=== PATIENT | male | born 1970 | race Caucasian/White ===

== ENCOUNTER → 2017-01-18 | Outpatient (CLI) | payer OTHER ==
[~2017-01-18] MED LIST: ANTIBIOTIC O500 U/GM T; ATORVASTATIN CA10 M1 PO; CITALOPRAM HYDR40 MG PO; FENOFIBRATE160 MG PO; KEFLEX500 M1 PO; METFORMIN HCL1000 MG PO; NAPROSYN500 MG PO; SILDENAFIL20 M1 PO
== END | disposition home or self-care (01) ==
LOC: RAD 17:18
DX: M51.36 Other intervertebral disc degeneration, lumbar region (principal); M48.05 Spinal stenosis, thoracolumbar region; M48.02 Spinal stenosis, cervical region; M50.322 Other cervical disc degeneration at C5-C6 level; M25.511 Pain in right shoulder; M25.512 Pain in left shoulder

== ENCOUNTER 2017-04-16 08:58 | Inpatient (IN) | payer OTHER ==
[~2017-04-16] VITALS: Ht 185 cm; Wt 147.0 kg
--- NOTE | ~2017-04-16 | CON ---
[place], [place] REPORT OF CONSULTATION NAME: SHANNON BOND UNIT #: [id number] ROOM: 408 DOCTOR: KASSIDY LAUREN,DECEMBER BIRTHDATE: [birth year] DOS: 04/17/2017 HISTORY OF PRESENT ILLNESS: The patient is a 46-year-old obese male who was admitted with approximately 6 days history of worsening buttock pain as well as poor appetite, fevers and chills over the last couple of days. He was found to have a buttock abscess. He was I and D by Dr. Lopez. ID was consulted for buttock abscess, cultures are both growing group B strep. I and D occurred yesterday on the . Blood cultures are negative. The patient's temperatures were down and he is feeling somewhat better, though he continues with significant pain. WBCs were 12.3 on admission, down to 10.7 today. PAST MEDICAL HISTORY: As above as well as evulsion of skin of right thumb, heroin abuse, hyperlipidemia, hypertension, opiate abuse and tonsillectomy. SOCIAL HISTORY: Again, history of heroin and opiate abuse. He is a chronic smoker, nondrinker. ALLERGIES: No known drug allergies. REVIEW OF SYSTEMS: As above in history of present illness, continues to have again significant pain in left buttocks. No cough or shortness of breath. No rash or itch. Fevers and chills have improved as has the nausea. He has been afebrile since admission. Further review of systems is unremarkable. He states he has had cyst in the past but never required medical treatment. CURRENT MEDICATIONS: Include Levemir, Celexa, [place], vancomycin, Lipitor, Zosyn, Neurontin, Restoril, Zofran. LABORATORY DATA: WBC 10.7, platelets 72, BUN 21, creatinine 1.5. LFTs within normal limits. Cultures as reviewed above. PHYSICAL EXAMINATION: VITAL SIGNS: Temperature 98.6, pulse 74, respirations 20, BP 129/55. GENERAL: A 46-year-old obese male in no acute distress. HEAD, EYES, EARS, NOSE, AND THROAT: Normocephalic, no thrush. LUNGS: Clear to auscultation bilaterally. Respirations even and unlabored. HEART: Regular rhythm. No murmur appreciated. ABDOMEN: Soft, obese, nontender. EXTREMITIES: No edema, deformity or cyanosis. Left gluteal cleft wound is packed, does have surrounding induration and tenderness. SKIN: Otherwise, warm, dry, free of rashes, several tattoos noted. ASSESSMENT: Left gluteal cleft abscess with cultures currently growing group B strep. We will go ahead and stop the vancomycin, especially given his creatinine of 1.5. Continue the Zosyn and anticipate narrowing the antibiotics to oral antibiotics and discharging in the next 24-48 hours. Case discussed with Dr. Hollis Gimenez. [place], [place] REPORT OF CONSULTATION NAME: SHANNON BOND UNIT #: [id number] ROOM: [facility] DOCTOR: KASSIDY LAURENDECEMBER BIRTHDATE: [birth year] KARLENE XIN YI HOLLIS GIMENEZ MD CM:CONSTR:REPORT OF CONSULTATION 1708 04/17/17 [id number]
--- NOTE | ~2017-04-16 | PROC NOTE ---
[place], [place] PROCEDURE NOTE [facility]: [facility]OND [id number] UNIT #: [id number] ROOM: 408 DOCTOR: AMAIRANI LOPEZ MD BIRTHDATE: [birth year] DOS: 04/21/2017 PREOPERATIVE DIAGNOSIS: Left buttock abscess. POSTOPERATIVE DIAGNOSIS: Left buttock abscess. PROCEDURE: Incision and drainage of left buttock abscess. SURGEON: Amairani Lopez MD BANDER AND CELLOPHANER MACHINE HELPER: None. ANESTHESIA: MAC. INDICATIONS: This is a 46-year-old male with a history of persistent left buttock abscess who is here for the above-mentioned procedure. The procedure and its complications explained to the patient in detail and he agreed to proceed. DESCRIPTION OF PROCEDURE: After identifying the patient, the patient was brought to the operating suite and laid in the supine position. After IV sedation was administered, a timeout procedure was called and the patient was placed in lithotomy position and the parts were then painted and draped in the usual sterile fashion. The previously made incision for the left buttock abscess was deepened in layers and a small amount of fat necrosis and pus was drained. Saline was used for irrigation and abscess cavity was then packed with the help of 1 inch iodoform pack. Dressing was placed. The patient was brought back into the recovery room in a stable fashion. There were no complications. Dr. Amairani Lopez, the attending surgeon, was present throughout the operating case. Amairani Lopez MD CM:PROCNOTE:PROCEDURE NOTE [id number] AMAIRANI LOPEZ MD
[2017-04-16 09:05] VITALS: BP 154/98
[2017-04-16 09:41] LABS: BASO % 0.2 % (0.0-1.0); EOS # 0.1 10*3/uL (0.0-0.4); EOS % 0.8 % (1.0-4.0); HEMATOCRIT 37.2 % (42.0-52.0); HEMOGLOBIN 13.1 g/dl (14.0-18.0); IG # 0.1 10*3/uL (0.0-0.1); LYMPH # 1.2 10*3/uL (1.3-4.4); MEAN CELL VOLUME 90.1 fl (80.0-94.0); MEAN CORPUSCULAR HGB 31.7 pg (27.0-31.0); MEAN CORPUSCULAR HGB CONC 35.2 g/dl (33.0-37.0); MONO # 1.3 10*3/uL (0.1-1.0); MONO % 10.6 % (3.0-9.0); NEUT # 9.6 10*3/uL (2.3-7.9); NEUT % 77.8 % (47.0-73.0); PLATELET COUNT AUTOMATED 85 10*3/uL (130-400); RED BLOOD COUNT 4.13 10*6/uL (4.50-5.90); RED CELL DISTRI WIDTH 12.1 % (0-14.5); WHITE BLOOD COUNT 12.3 10*3/uL (4.8-10.8)
[2017-04-16 09:57] LABS: ALBUMIN 2.1 gm/dl (3.1-4.5); BILIRUBIN, TOTAL 0.7 mg/dl (0.2-1.0); POTASSIUM 4.2 mmol/L (3.5-5.1); TOTAL PROTEIN 6.9 gm/dL (6.4-8.2)
[2017-04-16 11:50] VITALS: BP 139/71
[2017-04-16] MEDS ORDERED: LISINOPRIL AND1 TA2 PO (12:17)
[2017-04-16] MEDS ORDERED: LANTUS SOLOS100 U/M1 SC (12:18)
[2017-04-16] MEDS ORDERED: GABAPENTIN TAB600 MG PO (12:18)
[2017-04-16] MEDS ORDERED: HUMALOG100 UNIT/1 SQ (12:18)
[2017-04-16] MEDS ORDERED: CITALOPRAM HYDR20 MG PO (12:19)
[2017-04-16] MEDS ORDERED: LISINOPRIL-HYDR1 TA2 PO (12:28)
[2017-04-16] MEDS ORDERED: ATORVASTATIN CA10 M1 PO (12:33)
[2017-04-16] MEDS ORDERED: METFORMIN1000 MG PO (12:34)
[2017-04-16] MEDS ORDERED: LANTUS100 U/ML SC (12:37)
[2017-04-16 16:00] VITALS: BP 130/82
[2017-04-16 18:41] LABS: CPK 87 U/L (39-308)
[2017-04-16 18:42] LABS: TROPONIN I < 0.015 ng/ml (<0.045)
[2017-04-16 20:00] VITALS: BP 136/63
[2017-04-17] VITALS: BP 119/51
[2017-04-17 06:43] LABS: BILIRUBIN NEGATIVE (NEGATIVE); BLOOD 2+ (NEGATIVE); CLARITY CLEAR (CLEAR); COLOR YELLOW (YELLOW); GLUCOSE 2+ (NEGATIVE); KETONE NEGATIVE (NEGATIVE); LEUKO ESTERASE TRACE (NEGATIVE); NITRITE NEGATIVE (NEGATIVE); PH 5.5 (5.0-9.0); PROTEIN 3+ (NEGATIVE); SPECIFIC GRAVITY 1.025 (1.005-1.030)
[2017-04-17 06:51] LABS: BACTERIA 1+
[2017-04-17 06:52] LABS: BASO % 0.2 % (0.0-1.0); EOS # 0.1 10*3/uL (0.0-0.4); HEMATOCRIT 34.7 % (42.0-52.0); HEMOGLOBIN 11.9 g/dl (14.0-18.0); IG # 0.1 10*3/uL (0.0-0.1); LYMPH % 9.4 % (27.0-41.0); MEAN CORPUSCULAR HGB 31.9 pg (27.0-31.0); MEAN CORPUSCULAR HGB CONC 34.3 g/dl (33.0-37.0); MEAN PLATELET VOLUME 11.6 fl (9.6-12.3); MONO # 1.3 10*3/uL (0.1-1.0); MONO % 12.3 % (3.0-9.0); NEUT # 8.2 10*3/uL (2.3-7.9); NEUT % 76.4 % (47.0-73.0); PLATELET COUNT AUTOMATED 72 10*3/uL (130-400); RED BLOOD COUNT 3.73 10*6/uL (4.50-5.90); WHITE BLOOD COUNT 10.7 10*3/uL (4.8-10.8)
[2017-04-17 07:06] LABS: HEMOGLOBIN A1c 13.3 % (4.8-5.6)
[2017-04-17 07:22] LABS: INTERNATIONAL NORM RATIO 1.1 (2.0-3.5); PROTHROMBIN TIME 11.4 SECONDS (9.0-12.4)
[2017-04-17 07:25] LABS: ALBUMIN 1.8 gm/dl (3.1-4.5); BUN 21 mg/dl (7-24); CARBON DIOXIDE 22 mmol/L (21-32); CHLORIDE 101 mmol/L (98-107); CHOLESTEROL 139 mg/dL (<200); EST GLOM FILT AFRICAN AMERICAN > 60 ml/min; GLUCOSE 221 mg/dL (65-99); MAGNESIUM 1.8 mg/dL (1.5-2.1); POTASSIUM 4.1 mmol/L (3.5-5.1); SGOT/AST 19 IU/L (3-35); SGPT/ALT 28 U/L (12-78); SODIUM 132 mmol/L (136-145)
[2017-04-17 07:33] LABS: ALKALINE PHOSPHATASE 63 U/L (45-117); BILIRUBIN, TOTAL 0.5 mg/dl (0.2-1.0); FREE T4 1.09 ng/dl (0.76-1.46); HDL CHOLESTEROL 32 mg/dl (40-60); LDL CHOLESTEROL 72 mg/dL (9-159); PHOSPHOROUS 2.3 mg/dL (2.5-4.9); TOTAL PROTEIN 5.8 gm/dL (6.4-8.2); TRIGLYCERIDES 173 mg/dl (<150); VLDL CHOLESTEROL 35 mg/dL (6-40)
[2017-04-17 07:39] LABS: VITAMIN D, 25-HYDROXY 14.6 ng/mL (30-100)
[2017-04-17 07:40] LABS: FOLIC ACID 12.56 ng/mL (>5.38)
[2017-04-17 08:00] VITALS: BP 123/52
[2017-04-17 12:00] VITALS: BP 132/60
[2017-04-17 16:00] VITALS: BP 129/55
[2017-04-17 20:00] VITALS: BP 146/74
[2017-04-18] VITALS: BP 145/60
[2017-04-18 08:00] VITALS: BP 137/60
[2017-04-18 12:00] VITALS: BP 134/73
[2017-04-18 16:00] VITALS: BP 133/72
[2017-04-18 20:00] VITALS: BP 157/67
[2017-04-19] VITALS: BP 131/62
[2017-04-19 06:21] LABS: BASO % 0.5 % (0.0-1.0); EOS # 0.2 10*3/uL (0.0-0.4); HEMATOCRIT 33.2 % (42.0-52.0); HEMOGLOBIN 11.1 g/dl (14.0-18.0); IG # 0.1 10*3/uL (0.0-0.1); LYMPH # 1.3 10*3/uL (1.3-4.4); LYMPH % 15.5 % (27.0-41.0); MEAN CORPUSCULAR HGB 31.1 pg (27.0-31.0); MEAN CORPUSCULAR HGB CONC 33.4 g/dl (33.0-37.0); MEAN PLATELET VOLUME 11.9 fl (9.6-12.3); MONO % 12.2 % (3.0-9.0); NEUT # 5.5 10*3/uL (2.3-7.9); NEUT % 68.7 % (47.0-73.0); PLATELET COUNT AUTOMATED 93 10*3/uL (130-400); RED BLOOD COUNT 3.57 10*6/uL (4.50-5.90); RED CELL DISTRI WIDTH 11.9 % (0-14.5)
[2017-04-19 06:52] LABS: BUN 16 mg/dl (7-24); CARBON DIOXIDE 25 mmol/L (21-32); CHLORIDE 104 mmol/L (98-107); EST GLOM FILT AFRICAN AMERICAN > 60 ml/min; GLUCOSE 260 mg/dL (65-99); POTASSIUM 4.5 mmol/L (3.5-5.1); SODIUM 137 mmol/L (136-145)
[2017-04-19 08:00] VITALS: BP 123/68
[2017-04-19 12:00] VITALS: BP 143/77
[2017-04-19 15:58] VITALS: BP 142/60
[2017-04-19 20:00] VITALS: BP 134/65
[2017-04-20] VITALS: BP 152/91
[2017-04-20 06:53] LABS: BASO % 0.6 % (0.0-1.0); EOS # 0.2 10*3/uL (0.0-0.4); EOS % 2.3 % (1.0-4.0); HEMATOCRIT 34.6 % (42.0-52.0); HEMOGLOBIN 11.5 g/dl (14.0-18.0); IG # 0.1 10*3/uL (0.0-0.1); LYMPH # 1.5 10*3/uL (1.3-4.4); LYMPH % 20.9 % (27.0-41.0); MEAN CELL VOLUME 92.8 fl (80.0-94.0); MEAN CORPUSCULAR HGB 30.8 pg (27.0-31.0); MEAN CORPUSCULAR HGB CONC 33.2 g/dl (33.0-37.0); MEAN PLATELET VOLUME 11.9 fl (9.6-12.3); MONO # 0.8 10*3/uL (0.1-1.0); MONO % 11.1 % (3.0-9.0); NEUT # 4.4 10*3/uL (2.3-7.9); NEUT % 63.4 % (47.0-73.0); PLATELET COUNT AUTOMATED 98 10*3/uL (130-400); RED BLOOD COUNT 3.73 10*6/uL (4.50-5.90); RED CELL DISTRI WIDTH 11.9 % (0-14.5); WHITE BLOOD COUNT 6.9 10*3/uL (4.8-10.8)
[2017-04-20 06:59] LABS: BUN 15 mg/dl (7-24); CARBON DIOXIDE 26 mmol/L (21-32); CHLORIDE 102 mmol/L (98-107); EST GLOM FILT AFRICAN AMERICAN > 60 ml/min; GLUCOSE 286 mg/dL (65-99); POTASSIUM 4.4 mmol/L (3.5-5.1); SODIUM 136 mmol/L (136-145)
[2017-04-20 08:00] VITALS: BP 151/74
[2017-04-20 12:00] VITALS: BP 132/63
[2017-04-20 16:00] VITALS: BP 137/58
[2017-04-20 20:00] VITALS: BP 135/60
[2017-04-21] VITALS (9 sets, daily range): BP systolic 114–181; BP diastolic 59–81
[2017-04-21 05:59] LABS: BASO % 0.5 % (0.0-1.0); EOS # 0.1 10*3/uL (0.0-0.4); EOS % 2.1 % (1.0-4.0); HEMATOCRIT 34.1 % (42.0-52.0); HEMOGLOBIN 11.3 g/dl (14.0-18.0); IG # 0.2 10*3/uL (0.0-0.1); LYMPH # 1.4 10*3/uL (1.3-4.4); LYMPH % 21.9 % (27.0-41.0); MEAN CELL VOLUME 92.4 fl (80.0-94.0); MEAN CORPUSCULAR HGB 30.6 pg (27.0-31.0); MEAN CORPUSCULAR HGB CONC 33.1 g/dl (33.0-37.0); MEAN PLATELET VOLUME 11.1 fl (9.6-12.3); MONO # 0.8 10*3/uL (0.1-1.0); MONO % 11.9 % (3.0-9.0); NEUT % 61.3 % (47.0-73.0); PLATELET COUNT AUTOMATED 95 10*3/uL (130-400); RED BLOOD COUNT 3.69 10*6/uL (4.50-5.90); RED CELL DISTRI WIDTH 11.9 % (0-14.5); WHITE BLOOD COUNT 6.6 10*3/uL (4.8-10.8)
[2017-04-21 06:04] LABS: BUN 17 mg/dl (7-24); CARBON DIOXIDE 28 mmol/L (21-32); CHLORIDE 101 mmol/L (98-107); EST GLOM FILT AFRICAN AMERICAN > 60 ml/min; GLUCOSE 247 mg/dL (65-99); POTASSIUM 4.4 mmol/L (3.5-5.1); SODIUM 137 mmol/L (136-145)
[2017-04-22] VITALS: BP 165/72
[2017-04-22 07:05] LABS: BASO % 0.5 % (0.0-1.0); EOS # 0.1 10*3/uL (0.0-0.4); EOS % 2.2 % (1.0-4.0); HEMATOCRIT 37.4 % (42.0-52.0); HEMOGLOBIN 12.4 g/dl (14.0-18.0); IG # 0.2 10*3/uL (0.0-0.1); LYMPH # 1.4 10*3/uL (1.3-4.4); LYMPH % 22.6 % (27.0-41.0); MEAN CELL VOLUME 92.6 fl (80.0-94.0); MEAN CORPUSCULAR HGB 30.7 pg (27.0-31.0); MEAN CORPUSCULAR HGB CONC 33.2 g/dl (33.0-37.0); MEAN PLATELET VOLUME 11.7 fl (9.6-12.3); MONO # 0.7 10*3/uL (0.1-1.0); MONO % 11.7 % (3.0-9.0); NEUT # 3.6 10*3/uL (2.3-7.9); PLATELET COUNT AUTOMATED 101 10*3/uL (130-400); RED BLOOD COUNT 4.04 10*6/uL (4.50-5.90); RED CELL DISTRI WIDTH 11.9 % (0-14.5)
[2017-04-22 07:32] LABS: BUN 17 mg/dl (7-24); CARBON DIOXIDE 28 mmol/L (21-32); CHLORIDE 100 mmol/L (98-107); EST GLOM FILT AFRICAN AMERICAN > 60 ml/min; GLUCOSE 250 mg/dL (65-99); POTASSIUM 4.7 mmol/L (3.5-5.1); SODIUM 136 mmol/L (136-145)
[2017-04-22 08:00] VITALS: BP 147/79
[2017-04-22] MEDS ORDERED: CLINDAMYCIN150 MG PO (09:57)
[2017-04-22] MEDS ORDERED: CEPHALEXIN500 M1 PO (09:57)
[2017-04-22] MEDS ORDERED: D-1000 185 MG-11 TAB PO (10:43)
[2017-04-22] MEDS ORDERED: CITALOPRAM HYDR20 MG PO (10:43)
[2017-04-22] MEDS ORDERED: NEURONTIN300 MG PO (10:43)
[2017-04-22] MEDS ORDERED: ATORVASTATIN CA10 M1 PO (10:43)
[2017-04-22] MEDS ORDERED: HUMALOG100 U/ML SC (10:46)
[2017-04-22] MEDS ORDERED: LEVEMIR10 ML SC (10:46)
[2017-04-22] MEDS ORDERED: NORVASC5 MG PO (10:47)
[2017-04-22 12:00] VITALS: BP 146/68
[2017-04-22] MEDS ORDERED: PERCOCET 325 MG1 TA2 PO (13:06)
== END 2017-04-22 13:50 | disposition home health service (06) | DRG 871 ==
LOC: ED 08:58 → 4E 10:08 → EDHOLD 10:08 → 4E 10:21
PROVIDERS: Family Medicine; Hospitalist; Internal Medicine; Nurse Practitioner Family
PROC: 0H98XZZ Drainage of Buttock Skin, External Approach (ICD-10-PCS; 2017-04-16)
PROC: 0H98XZZ Drainage of Buttock Skin, External Approach (ICD-10-PCS; principal; 2017-04-21)
DX: A41.9 Sepsis, unspecified organism (principal); E43 Unspecified severe protein-calorie malnutrition; D69.6 Thrombocytopenia, unspecified; E11.65 Type 2 diabetes mellitus with hyperglycemia; Z68.41 Body mass index [BMI] 40.0-44.9, adult; L02.31 Cutaneous abscess of buttock; N28.9 Disorder of kidney and ureter, unspecified; I10 Essential (primary) hypertension; B95.1 Streptococcus, group B, as the cause of diseases classified elsewhere; D64.9 Anemia, unspecified; E78.5 Hyperlipidemia, unspecified; Z79.4 Long term (current) use of insulin; Z79.84 Long term (current) use of oral hypoglycemic drugs; Z79.899 Other long term (current) drug therapy; Z87.891 Personal history of nicotine dependence

== ENCOUNTER → 2017-10-21 | Outpatient (CLI) | payer OTHER ==
[~2017-10-21] MED LIST changes: +CEPHALEXIN500 M1 PO; +CITALOPRAM HYDR20 MG PO; +CLINDAMYCIN150 MG PO; +D-1000 185 MG-11 TAB PO; +GABAPENTIN TAB600 MG PO; +HUMALOG100 U/ML SC; +HUMALOG100 UNIT/1 SQ; +LANTUS SOLOS100 U/M1 SC; +LANTUS100 U/ML SC; +LEVEMIR10 ML SC; +LISINOPRIL AND1 TA2 PO; +LISINOPRIL-HYDR1 TA2 PO; +METFORMIN1000 MG PO; +NEURONTIN300 MG PO; +NORVASC5 MG PO; +PERCOCET 325 MG1 TA2 PO
== END ==
LOC: US 08:58
DX: K76.0 Fatty (change of) liver, not elsewhere classified (principal); I10 Essential (primary) hypertension; R94.5 Abnormal results of liver function studies

== ENCOUNTER → 2017-10-29 | Outpatient (CLI) | payer OTHER | END | disposition home or self-care (01) | LOC: US 09:43 | DX: N28.9 Disorder of kidney and ureter, unspecified (principal); E11.9 Type 2 diabetes mellitus without complications ==

== ENCOUNTER → 2017-12-21 | Outpatient (CLI) | payer OTHER ==
[~2017-12-21] MED LIST changes: +CELEXA40 MG PO; +TRAMADOL HCL50 MG PO; +ZESTORETIC 20-1 EAC1 PO
--- NOTE | ~2017-12-21 | ST ---
[place], [place] EXERCISE STRESS TEST REPORT NAME: SHANNON BOND UNIT #: [id number] ROOM: DOCTOR: MARYLU EASON MD BIRTHDATE: [birth year] DOS: 12/21/2017 LEXISCAN PORTION OF THE LEXISCAN CARDIOLITE Baseline cardiogram, sinus rhythm with nonspecific ST-T changes, 0.4 mg Lexiscan, duration of 10 seconds. With Lexiscan, no new EKG changes. The patient had no chest discomfort, no dysrhythmia. Blood pressure and heart rate responses normal. FINAL IMPRESSION: No EKG changes with Lexiscan. No chest pain with Lexiscan. No dysrhythmia with Lexiscan. The patient's heart rate response was normal. Nuclear images will be reported separately. MARYLU EASON MD CM:STRESS:EXERCISE STRESS TEST REPORT [id number] MARYLU EASON MD
== END | disposition home or self-care (01) ==
LOC: CARD 12-07 07:30
DX: R53.81 Other malaise (principal); R94.31 Abnormal electrocardiogram [ECG] [EKG]

== ENCOUNTER 2020-02-12 08:08 | Inpatient (IN) | payer SELFPAY ==
[~2020-02-12] VITALS: Ht 185.4 cm; Wt 137.0 kg
[2020-02-12 08:21] VITALS: BP 168/72
[2020-02-12 08:56] LABS: BASO % 0.4 % (0.0-1.0); EOS # 0.2 10*3/uL (0.0-0.4); HEMATOCRIT 35.4 % (42.0-52.0); LYMPH # 1.4 10*3/uL (1.3-4.4); LYMPH % 16.7 % (27.0-41.0); MEAN CELL VOLUME 92.2 fl (80.0-94.0); MEAN CORPUSCULAR HGB 31.3 pg (27.0-31.0); MEAN CORPUSCULAR HGB CONC 33.9 g/dl (33.0-37.0); MEAN PLATELET VOLUME 10.9 fl (9.6-12.3); MONO # 0.7 10*3/uL (0.1-1.0); MONO % 8.1 % (3.0-9.0); NEUT # 6.1 10*3/uL (2.3-7.9); NEUT % 72.3 % (47.0-73.0); PLATELET COUNT AUTOMATED 115 10*3/uL (130-400); RED BLOOD COUNT 3.84 10*6/uL (4.50-5.90); RED CELL DISTRI WIDTH 12.1 % (0-14.5); WHITE BLOOD COUNT 8.5 10*3/uL (4.8-10.8)
[2020-02-12 09:03] VITALS: BP 98/74
[2020-02-12 09:11] LABS: ACT PARTIAL THROMBO TIME 28.8 SECONDS (20.0-32.1)
[2020-02-12 09:17] LABS: ALBUMIN 2.1 gm/dl (3.1-4.5); ALKALINE PHOSPHATASE 90 U/L (45-117); BUN 43 mg/dl (7-24); CHLORIDE 109 mmol/L (98-107); CPK 158 U/L (39-308); CREATININE 3.89 mg/dL (0.70-1.30); POTASSIUM 4.2 mmol/L (3.5-5.1); SGOT/AST 21 IU/L (3-35); SGPT/ALT 23 U/L (12-78); SODIUM 138 mmol/L (136-145); TOTAL PROTEIN 6.6 gm/dL (6.4-8.2); TROPONIN I < 0.015 ng/ml (<0.045)
[2020-02-12 09:48] LABS: BILIRUBIN NEGATIVE (NEGATIVE); BLOOD 3+ (NEGATIVE); CLARITY CLEAR (CLEAR); COLOR YELLOW (YELLOW); GLUCOSE 2+ (NEGATIVE); KETONE TRACE (NEGATIVE)
[2020-02-12 09:49] LABS: LEUKO ESTERASE NEGATIVE (NEGATIVE); NITRITE NEGATIVE (NEGATIVE); UROBILINOGEN < 0.2 E.U./dl (0.2-1.0)
[2020-02-12 09:53] LABS: URINE AMPHETAMINES < 1000 (1000ng/ml); URINE BARBITURATES < 200 (200ng/ml); URINE BENZODIAZEPINES < 200 (200ng/ml); URINE CANNABINOIDS (THC) > 50 (50ng/ml); URINE COCAINE < 300 (300ng/ml); URINE METHADONE < 300 (300ng/ml); URINE OPIATES < 300 (300ng/ml); URINE PHENCYCLIDINE < 25 (25ng/ml)
[2020-02-12 10:05] LABS: BACTERIA 2+
[2020-02-12 10:45] VITALS: BP 110/82
[2020-02-12 11:03] VITALS: BP 162/86
--- NOTE | 2020-02-12 11:03 | NUR ---
A 49, admitted to , under the services of KENTON Ramirez DO with a diagnosis of CORI. Chief complaint is NAUSEA/ABDOMINAL PAIN. Patient arrived via stretcher from ER. Monitor applied. Initial assessment completed. Vital signs taken and recorded. KENTON RAMIREZ DO notified of admission to the unit. Orders received. See assessment for past medical history, medications and allergies. Patient and/or family oriented to unit. [address] visitation policy reviewed. Clothing/patient valuable form completed. ELLA DE LA PAZ
--- NOTE | 2020-02-12 11:36 | NUR ---
OFFICE NOTIFIED OF NEW CONSULT. AWAITING CALL BACK.
--- NOTE | 2020-02-12 11:43 | NUR ---
SURI CAPELLAN NP NOTIFIED THAT PATIENT REQUESTING TO SIGN OUT AMA.
--- NOTE | 2020-02-12 12:17 | NUR ---
Patient signed out AMA. Patient encouraged to stay and advised of possible consequences of premature discharge. Physician and supervisor dehydrogenation HAROON notified. Patient instructed what to do regarding care post-departure from the hospital; emergency phone numbers provided. Patent was accompanied by HIMSELF. AND NURSING SUPERVIOR MADE AWARE. PT SIGNED AMA FORM AND IV TAKEN OUT. ELLA DE LA PAZ
== END 2020-02-12 12:17 | disposition left against medical advice (07) | DRG 684 ==
LOC: ED 08:08 → 4E 09:44 → EDHOLD 09:44 → 4E 10:13
PROVIDERS: Emergency Medicine; ADMIT Internal Medicine
DX: N17.0 Acute kidney failure with tubular necrosis (principal); E78.5 Hyperlipidemia, unspecified; E11.65 Type 2 diabetes mellitus with hyperglycemia; Z53.29 Procedure and treatment not carried out because of patient's decision for other reasons; I12.9 Hypertensive chronic kidney disease with stage 1 through stage 4 chronic kidney disease, or unspecified chronic kidney disease; N18.9 Chronic kidney disease, unspecified; E11.22 Type 2 diabetes mellitus with diabetic chronic kidney disease; Z87.891 Personal history of nicotine dependence; Z83.3 Family history of diabetes mellitus; Z79.4 Long term (current) use of insulin; Z82.49 Family history of ischemic heart disease and other diseases of the circulatory system; Z80.8 Family history of malignant neoplasm of other organs or systems

== ENCOUNTER 2020-07-04 08:40 | Inpatient (IN) | payer SELFPAY ==
[~2020-07-04] VITALS: Ht 185.4 cm; Wt 130.7 kg
[2020-07-04 08:50] VITALS: BP 177/82
[2020-07-04 09:22] LABS: BASO % 0.4 % (0.0-1.0); EOS # 0.2 10*3/uL (0.0-0.4); EOS % 2.2 % (1.0-4.0); HEMATOCRIT 31.9 % (42.0-52.0); LYMPH # 1.6 10*3/uL (1.3-4.4); LYMPH % 22.8 % (27.0-41.0); MEAN CELL VOLUME 93.3 fl (80.0-94.0); MEAN CORPUSCULAR HGB 30.1 pg (27.0-31.0); MEAN CORPUSCULAR HGB CONC 32.3 g/dl (33.0-37.0); MONO # 0.6 10*3/uL (0.1-1.0); MONO % 8.5 % (3.0-9.0); NEUT # 4.7 10*3/uL (2.3-7.9); NEUT % 65.7 % (47.0-73.0); PLATELET COUNT AUTOMATED 95 10*3/uL (130-400); RED BLOOD COUNT 3.42 10*6/uL (4.50-5.90); RED CELL DISTRI WIDTH 12.7 % (0-14.5); WHITE BLOOD COUNT 7.1 10*3/uL (4.8-10.8)
[2020-07-04 09:38] LABS: ALBUMIN 2.2 gm/dl (3.1-4.5); CREATININE 6.39 mg/dL (0.70-1.30); POTASSIUM 4.9 mmol/L (3.5-5.1); TOTAL PROTEIN 6.2 gm/dL (6.4-8.2)
[2020-07-04 09:39] LABS: TROPONIN I 0.04 ng/ml (<0.045)
[2020-07-04 09:40] LABS: ETHYL ALCOHOL < 3.0 mg/dl (<3)
[2020-07-04 10:00] VITALS: BP 187/86
[2020-07-04 10:56] LABS: BILIRUBIN Negative (Negative); BLOOD 2+ (Negative); CLARITY Clear (Clear); COLOR Yellow (Yellow); GLUCOSE 2+ (Negative); KETONE Negative (Negative); LEUKO ESTERASE Negative (Negative); NITRITE Negative (Negative); PH 6.5 (4.5-8.0); SPECIFIC GRAVITY 1.015 (1.001-1.030); UROBILINOGEN 0.2 E.U./dl (0.0-1.0)
[2020-07-04 11:00] LABS: URINE AMPHETAMINES < 1000 (1000ng/ml); URINE BARBITURATES < 200 (200ng/ml); URINE BENZODIAZEPINES < 200 (200ng/ml); URINE CANNABINOIDS (THC) > 50 (50ng/ml); URINE COCAINE < 300 (300ng/ml); URINE METHADONE < 300 (300ng/ml); URINE OPIATES < 300 (300ng/ml)
[2020-07-04 11:03] LABS: URINE PHENCYCLIDINE < 25 (25ng/ml)
[2020-07-04 11:08] LABS: BACTERIA 1+; RBC 16-20 rbc/hpf (0-2); WBC 16-20 wbc/hpf (0-5)
[2020-07-04 15:47] LABS: ACT PARTIAL THROMBO TIME 28.3 SECONDS (20.0-32.1)
--- NOTE | 2020-07-04 19:15 | NUR ---
Transfer of care from Carisa ornelas,
[2020-07-04 19:23] VITALS: BP 182/92
[2020-07-04 19:24] VITALS: BP 174/90
--- NOTE | 2020-07-04 19:25 | NUR ---
Trace edema noted to b/l lower legs at this time.
--- NOTE | 2020-07-04 19:25 | NUR ---
In to see pt at this time.Pt is alert and orientated x3.Pt has diminshed lung sounds in bases.Pt denines open wounds at this time and has 22 gauge in rac at this time.Pt has bowel sounds x4 and is using urinal at this time.
[2020-07-04 19:45] VITALS: BP 187/86
--- NOTE | 2020-07-04 19:45 | NUR ---
The assessment has been completed. ANNELISE GARZA The assessment has been completed. ANNELISE GARZA Time: 1944 A 49 year old MALE admitted to 5E under services of KENTON RAMIREZ DO, Pt. arrived via ambulatory from ER. Chief complaint: MULTIPLE COMPLIANTS.STATES HE HAS BEEN A NONCOMPLIANT DIABETIC FOR THE LAST YEAR.C/O BACK PAIN.LOWER LEG EDEMA.DIZZINSS.+VOMITING DAILY FOR MONTHS. STATES KIDNEY FUNCION WAS ELEVATED LAST TIME HE WAS HERE AND SHE IS CONCERNED FOR RENAL FAILURE. ANNELISE GARZA
--- NOTE | 2020-07-04 20:21 | NUR ---
DR MITCHELL NOTIFIED PT BP 187/86, ALSO THAT ER DID NOT GIVE THE SCHEDULED LISINOPRIL OR IV LASIX. STATES TO GIVE NOW AND MONITOR.
--- NOTE | 2020-07-04 20:38 | NUR ---
PT C/O 04/05 ACHING CHRONIC BACK PAIN AND REQUESTING A SLEEPING PILL. MEDICATED PER ORDER. WILL MONITOR FOR RELIEF. RESPS EASY AND NON LABORED. RESTING IN BED. CALL LIGHT WITHIN REACH.
--- NOTE | 2020-07-04 21:27 | NUR ---
RESIDENT NOTIFIED PT WANTS TO BE A DNR-CC AND THAT HE IS REQUESTING A NICOTINE PATCH. STATES HE WILL PUT ORDERS IN
--- NOTE | 2020-07-04 21:38 | NUR ---
PT STATES PAIN MEDICATION MOSTLY EFFECTIVE.
[2020-07-04 22:00] VITALS: BP 148/80
[2020-07-05] VITALS: BP 145/78
--- NOTE | 2020-07-05 02:42 | NUR ---
24 HR chart check completed.
--- NOTE | 2020-07-05 05:09 | NUR ---
PT C/O 02/03 CHRONIC BACK PAIN.MEDICATED PER ORDER. RESPS EASY AND NON LABORED.SITTING UP IN BED. WILL CONTINUE TO MONITOR FOR RELIEF. CALL LIGHT WITHIN REACH
--- NOTE | 2020-07-05 05:14 | NUR ---
PT BEGAN VOMITING AFTER BEING GIVEN NORCO. STATES HE VOMITS EVERY MORNING. MEDICATED WITH ZOFRAN. ALSO GIVEN MORPHINE D/T C/O 05/06 ACHING BACK PAIN NAD VOMITING AFTER TAKING NORCO. WILL CONTINUE TO MONITOR FOR RELIEF. SITTING UP IN BED. CALL LIGHT WITHIN REACH.
--- NOTE | 2020-07-05 06:00 | NUR ---
MEDICATION APPEAR EFFECTIVE. PT RESTING IN BED. RESPS EASY AND NONLABORED. NO S/S OF DISTRESS NOTED. CALL LIGHT WITHIN REACH.
--- NOTE | 2020-07-05 06:00 | NUR ---
PTS UPDATED ON POC. QUESTIONS ANSWERED.
--- NOTE | 2020-07-05 06:11 | NUR ---
DR OSORIO NOTIFIED OF NEW CONSULT. STATES TO MAKE PT NPO FOR DIALYSIS CATHETER PLACEMENT TODAY AROUND 1PM.
--- NOTE | 2020-07-05 06:18 | NUR ---
PER DR OSORIO, PT TO GET 400MG IV CIPRO PRIOR TO SURGERY. MEDICATION SCHEDULED FOR 12PM, SURGERY SCHEDULED FOR 1PM.
[2020-07-05 07:18] LABS: BASO % 0.3 % (0.0-1.0); EOS # 0.2 10*3/uL (0.0-0.4); EOS % 2.2 % (1.0-4.0); HEMATOCRIT 33.5 % (42.0-52.0); LYMPH # 1.2 10*3/uL (1.3-4.4); LYMPH % 17.1 % (27.0-41.0); MEAN CELL VOLUME 91.5 fl (80.0-94.0); MEAN CORPUSCULAR HGB 30.1 pg (27.0-31.0); MEAN CORPUSCULAR HGB CONC 32.8 g/dl (33.0-37.0); MEAN PLATELET VOLUME 11.2 fl (9.6-12.3); MONO # 0.6 10*3/uL (0.1-1.0); MONO % 9.2 % (3.0-9.0); NEUT # 4.9 10*3/uL (2.3-7.9); NEUT % 70.6 % (47.0-73.0); PLATELET COUNT AUTOMATED 103 10*3/uL (130-400); RED BLOOD COUNT 3.66 10*6/uL (4.50-5.90); RED CELL DISTRI WIDTH 12.4 % (0-14.5)
[2020-07-05 07:38] LABS: ALBUMIN 2.4 gm/dl (3.1-4.5); CREATININE 6.26 mg/dL (0.70-1.30); POTASSIUM 4.6 mmol/L (3.5-5.1); TOTAL PROTEIN 6.4 gm/dL (6.4-8.2)
[2020-07-05 08:00] VITALS: BP 167/70
[2020-07-05 08:11] LABS: VITAMIN D, 25-HYDROXY 10.5 ng/mL (30-100)
[2020-07-05 08:12] LABS: FERRITIN 64.2 ng/mL (22.0-322.0); PTH INTACT 131.2 pg/mL (18.5-88.0)
--- NOTE | 2020-07-05 11:38 | NUR ---
Certified Medicine Aide in to talk to patient. Patient states lives at HOME with . There are NO steps in the home. Physician: NONE AT THIS TIME [facility]acy: [facility] Home health services: NONE Patient's level of ADLs: INDEPENDENT Patient has working utilities: YES DME: NONE Follow-up physician's appointment after d/c: NO PCP AT THIS TIME Does patient want to access PORTAL?: N Discharge plan PT LIVES AT HOME WITH HIS AND KIDS AND IS INDEPENDENT IN HIS CARE. DENIES HE WILL HAVE NEEDS AT HOME. PT DOES NOT HAVE A PCP. STATES HE WILL FIND ONE AFTER DISCHARGE. PLAN IS TO RETURN HOME WHEN MEDICALLY STABLE. WILL CONTINUE TO FOLLOW. STATES HE WILL HAVE A RIDE HOME.. JIHAN AVILA
--- NOTE | 2020-07-05 11:45 | NUR ---
Speech Therapist Early Intervention in to talk to patient. Patient states lives at H with . There are 0 steps in the home. Physician: NONE AT THIS TIME [facility]acy: [facility] Home health services: NONE Patient's level of ADLs: INDEPENDENT Patient has working utilities: YES DME: NONE Follow-up physician's appointment after d/c: WILL BE MADE BY HOSPITALIST NURSE DIRECTOR ON DISCHARGE Does patient want to access PORTAL?: NO Discharge plan PT LIVES AT HOME WITH AND KIDS AND IS INDEPENDENT IN HIS CARE. PT HAS NO PCP AND NO INSURANCE. PT HAS BEEN REFEERED FOR SELF PAY STATUS.PT WILL NEED PCP. STATES HE WANTS TO GO HOME WHEN MEDICALLY STABLE. WILL CONTINUE TO FOLLOW. WILL HAVE A RIDE HOME ON DISCHARGE.. JIHAN AVILA
[2020-07-05 12:00] VITALS: BP 147/75
--- NOTE | 2020-07-05 12:41 | NUR ---
PT CURRENTLY OFF FLOOR VIA BED, TO OR FOR TUNNEL CATH PLACEMENT WITH DR OSORIO.
[2020-07-05 12:59] LABS: HEMATOCRIT 33.9 % (42.0-52.0)
[2020-07-05 13:00] VITALS: BP 171/81
[2020-07-05 13:00] LABS: BASO % 0.4 % (0.0-1.0); EOS # 0.2 10*3/uL (0.0-0.4); HEMATOCRIT 34.2 % (42.0-52.0); LYMPH # 1.4 10*3/uL (1.3-4.4); LYMPH % 18.4 % (27.0-41.0); MEAN CELL VOLUME 92.7 fl (80.0-94.0); MEAN CORPUSCULAR HGB 30.4 pg (27.0-31.0); MEAN CORPUSCULAR HGB CONC 32.7 g/dl (33.0-37.0); MEAN PLATELET VOLUME 11.1 fl (9.6-12.3); MONO # 0.6 10*3/uL (0.1-1.0); MONO % 8.5 % (3.0-9.0); NEUT # 5.2 10*3/uL (2.3-7.9); NEUT % 70.3 % (47.0-73.0); PLATELET COUNT AUTOMATED 106 10*3/uL (130-400); RED BLOOD COUNT 3.69 10*6/uL (4.50-5.90); RED CELL DISTRI WIDTH 12.6 % (0-14.5); WHITE BLOOD COUNT 7.3 10*3/uL (4.8-10.8)
[2020-07-05 13:09] LABS: ALBUMIN 2.3 gm/dl (3.1-4.5); CREATININE 6.26 mg/dL (0.70-1.30); POTASSIUM 4.6 mmol/L (3.5-5.1)
--- NOTE | 2020-07-05 13:50 | NUR ---
DR MANN AWARE OF PT NOT HAVING TUNNEL CATH PLACED. PER DR MANN PT IS TO HAVE THE TUNNEL CATH PLACED TOMORROW AM.
[2020-07-05 16:00] VITALS: BP 140/74
--- NOTE | 2020-07-05 16:57 | NUR ---
NORCO 5/325 MG GIVEN FOR C/O GENERALIZED PAIN,06/06.
--- NOTE | 2020-07-05 19:30 | NUR ---
PT RESTING IN BED. RESPS EASY AND NON LABORED. NO S/S OF DISTRESS NOTED. VS. WHITE BOARD UPDATED. POC DISCUSSED W PT. A/O X3. VOICES NO CONCERNS. CALL LIGHT WITHIN REACH.
[2020-07-05 20:00] VITALS: BP 159/81
--- NOTE | 2020-07-05 20:50 | NUR ---
PT UPDATED ON POC. QUESTIONS ANSWERED.
--- NOTE | 2020-07-05 21:47 | NUR ---
PT CRYING, C/O 9/10 ACHING/SHARP CHRONIC BACK PAIN AND NAUSEA. ALSO REQUESTING SLEEPING PILL.MEDICATED PER ORDER. WILL MONITOR FOR RELIEF. RESPS EASY AND NON LABORED. RESTING IN BED. VSS. CALL LIGHT WITHIN REACH.
--- NOTE | 2020-07-05 22:47 | NUR ---
MEDICATIONS APPEAR EFFECTIVE. PT SLEEPING. RESPS EASY AND NON LABORED. NO S/S OF DISTRESS NOTED. CALL LIGHT WITHIN REACH.
[2020-07-06] VITALS (8 sets, daily range): BP systolic 128–180; BP diastolic 63–95
--- NOTE | 2020-07-06 02:12 | NUR ---
Patient sleeping. Respirations relaxed and easy. [place] up . [place] on. CALL LIGHT WITHIN REACH HISSOM,ANNELISE
--- NOTE | 2020-07-06 03:50 | NUR ---
24 HR chart check completed.
--- NOTE | 2020-07-06 05:13 | NUR ---
PT C/O 07/06 BACK PAIN AND NAUSEA. MEDICATED PER ORDER. WILL MONITOR FOR RELIEF. RESPS EASY AND NON LABORED. CALL LIGHT WITHIN REACH.
[2020-07-06 05:45] LABS: CREATININE 6.62 mg/dL (0.70-1.30); POTASSIUM 4.4 mmol/L (3.5-5.1)
--- NOTE | 2020-07-06 06:00 | NUR ---
MEDICATIONS APPEAR EFFECTIVE . PT SLEEPING. RESPS EASY AND NON LABORED. CALL LIGHT WITHIN REACH
--- NOTE | 2020-07-06 08:00 | NUR ---
Neurological: awake,alert,oriented Respiratory: easy, regular,no distress Breath sounds: clear Cough: none Cardiovascular: no problem Gastrointestinal: obese Genito/Urinary: no problem Musculoskeketal: AMBULATORY OF[address] LANE
--- NOTE | 2020-07-06 08:50 | NUR ---
SURGERY TRANSPORTED TO SURGERY HOLDING. IN STABLE CONDITION.
--- NOTE | 2020-07-06 10:20 | NUR ---
RECEIVED ORDERS FROM MD TO RESUME HOME MEDS. CIPRO 500MG X 3 DAYS. CALL HIM WITH CXR RESULTS.
[2020-07-06 11:06] LABS: BASO % 0.3 % (0.0-1.0); EOS # 0.2 10*3/uL (0.0-0.4); EOS % 2.3 % (1.0-4.0); HEMATOCRIT 31.5 % (42.0-52.0); LYMPH # 1.3 10*3/uL (1.3-4.4); LYMPH % 19.7 % (27.0-41.0); MEAN CELL VOLUME 91.6 fl (80.0-94.0); MEAN CORPUSCULAR HGB 30.2 pg (27.0-31.0); MEAN PLATELET VOLUME 11.4 fl (9.6-12.3); MONO # 0.7 10*3/uL (0.1-1.0); MONO % 10.2 % (3.0-9.0); NEUT # 4.4 10*3/uL (2.3-7.9); NEUT % 67.2 % (47.0-73.0); PLATELET COUNT AUTOMATED 96 10*3/uL (130-400); RED BLOOD COUNT 3.44 10*6/uL (4.50-5.90); RED CELL DISTRI WIDTH 12.6 % (0-14.5); WHITE BLOOD COUNT 6.6 10*3/uL (4.8-10.8)
--- NOTE | 2020-07-06 11:16 | NUR ---
IN DIALYSIS. C/O PAIN TO INSERTION SITE OF TESSIO CATH. MEDICATED PER PRN ORDERS.
[2020-07-06 11:17] LABS: ALBUMIN 2.1 gm/dl (3.1-4.5); CREATININE 6.26 mg/dL (0.70-1.30); POTASSIUM 4.4 mmol/L (3.5-5.1)
[2020-07-06 12:06] LABS: HEP B CORE AB, IGM Negative (Negative); HEPATITIS B SURFACE AG Negative (Negative); HEPATITIS C VIRUS ANTIBODY <0.1 s/co (0.0-0.9)
--- NOTE | 2020-07-06 14:50 | NUR ---
C/O PAIN FOR SX SITE. EXPLAINED THAT IT WAS NOT TIME FOR THE MORPHINE BUT OFFERED NORCO. PT SAID NO NORCO DOESN'T WORK. I ADVISED HIM THAT WHEN MORPHINE WAS DUE I WOULD GIVE IT TO HIM.
--- NOTE | 2020-07-06 16:00 | NUR ---
RECEIVED A CALL FROM [employer] STATING THAT PT CALLED AND WANTS HIM TO HAVE PAIN MEDS.
--- NOTE | 2020-07-06 16:10 | NUR ---
RECEIVED CALL FROM DR BRYANT STATING CALLED HIM WANTING TO KNOW ABOUT HUSBANDS PAIN MEDS. ADVISED PT THAT THEY HAVE NOTHING TO DO WITH HIS CARE HERE AND THAT IF WANTS INFO ABOUT CARE SHE NEED TO CALL HERE AND I WOULD BE GLAD TO EXPLAIN TO HER THAT IT WAS TO EARLY FOR HIS MEDS.
--- NOTE | 2020-07-06 16:20 | NUR ---
ENTERED ROOM TO GIVE MEDICATIONS. PT HAD ON SPEAKER PHONE. HES YELLING THAT HE IS LEAVING BECAUSE WE AREN'T TAKING CARE OF HIM. EXPLAINED THAT I HAVE TO CO BY ORDERS AND CAN'T JUST GIVE MEDS WHEN I WANT AND THEY ARE SCHED. BY MD. CONTINUED TO BE VERBALLY COMBATIVE. ADMINISTERED MEDS PER ORDER.
[2020-07-06 21:06] LABS: FREE KAPPA LIGHT CHAINS 172.6 mg/L (3.3-19.4); FREE LAMBDA LIGHT CHAINS 91.2 mg/L (5.7-26.3); KAPPA/LAMBDA RATIO 1.89 (0.26-1.65)
--- NOTE | 2020-07-06 21:22 | NUR ---
NORCO GIVEN PER PATIENT REQUEST FOR COMPLAINTS OF PAIN RATED 9/10 IN NECK/BACK. WILL ASSESS EFFECTIVENESS.
--- NOTE | 2020-07-06 22:20 | NUR ---
NORCO EFFECTIVE PER PT. WILL CONTINUE TO MONITOR.
[2020-07-07] VITALS: BP 174/69
--- NOTE | 2020-07-07 01:37 | NUR ---
MORPHINE GIVEN PER PATIENT REQUEST FOR COMPLAINTS OF PAIN RATED 9/10. WILL ASSESS EFFECTIVENESS.
--- NOTE | 2020-07-07 02:30 | NUR ---
MORPHINE EFFECTIVE PER PT.
--- NOTE | 2020-07-07 06:03 | NUR ---
ZOFRAN GIVEN FOR COMPLAINTS OF N/V. WILL ASSESS EFFECTIVENESS.
[2020-07-07 06:13] LABS: BASO % 0.3 % (0.0-1.0); EOS # 0.2 10*3/uL (0.0-0.4); EOS % 2.2 % (1.0-4.0); HEMATOCRIT 35.4 % (42.0-52.0); LYMPH # 1.8 10*3/uL (1.3-4.4); LYMPH % 23.8 % (27.0-41.0); MEAN CELL VOLUME 92.4 fl (80.0-94.0); MEAN CORPUSCULAR HGB CONC 32.5 g/dl (33.0-37.0); MEAN PLATELET VOLUME 11.3 fl (9.6-12.3); MONO # 0.8 10*3/uL (0.1-1.0); MONO % 10.7 % (3.0-9.0); NEUT # 4.7 10*3/uL (2.3-7.9); NEUT % 62.6 % (47.0-73.0); PLATELET COUNT AUTOMATED 108 10*3/uL (130-400); RED BLOOD COUNT 3.83 10*6/uL (4.50-5.90); RED CELL DISTRI WIDTH 12.4 % (0-14.5); WHITE BLOOD COUNT 7.4 10*3/uL (4.8-10.8)
[2020-07-07 06:35] LABS: CREATININE 6.56 mg/dL (0.70-1.30)
--- NOTE | 2020-07-07 07:00 | NUR ---
ZOFRAN EFFECTIVE PER PATIENT. WILL CONTINUE TO MONITOR.
--- NOTE | 2020-07-07 07:30 | NUR ---
TRANFERED TO DIALYSIS IN STABLE CONDITION.
[2020-07-07 08:00] VITALS: BP 191/108
--- NOTE | 2020-07-07 08:45 | NUR ---
C/O PAIN AND NAUSEA. MEDICATED PER PRN ORDER.
--- NOTE | 2020-07-07 10:34 | NUR ---
RETURNED FROM DIALYSIS. THEY TOOK 2.2L OFF. VS WERE STABLE DURING TX.
[2020-07-07 12:00] VITALS: BP 157/83
[2020-07-07 16:00] VITALS: BP 150/77
--- NOTE | 2020-07-07 17:40 | NUR ---
C/O NECK PAIN. MEDICATED PER PRN ORDER.
[2020-07-07 20:00] VITALS: BP 133/61
--- NOTE | 2020-07-07 20:00 | NUR ---
PATIENT SITTING ON EDGE OF BED WITH NO NEEDS MADE. BED IN LOWEST POSITION, CALL LIGHT IN REACH
--- NOTE | 2020-07-07 21:07 | NUR ---
MEDICATED WITH PRN MORPHINE FOR C/O NECK PAIN RATED 8/10 ON A 0/10 PAIN SCALE. WILL MONITOR
--- NOTE | 2020-07-07 21:47 | NUR ---
PATIENT SLEEPING. MEDICATION SEEMS EFFECTIVE
[2020-07-08] VITALS: BP 143/78
--- NOTE | 2020-07-08 00:06 | NUR ---
MEDICATED WITH PRN NORCO FOR C/O BACK PAIN, WILL MONITOR
--- NOTE | 2020-07-08 01:06 | NUR ---
PATIENT RESTING WITH NO S/S OF DISTRESS. MEDICATION SEEMS EFFECTIVE
--- NOTE | 2020-07-08 04:30 | NUR ---
MEDICATED WITH PRN MORPHINE FOR C/O BACK PAIN, WILL MONITOR
--- NOTE | 2020-07-08 05:30 | NUR ---
PATIENT SLEEPING, MEDICATION SEEMS EFFECTIVE
[2020-07-08 07:04] LABS: BASO % 0.3 % (0.0-1.0); EOS # 0.2 10*3/uL (0.0-0.4); EOS % 2.2 % (1.0-4.0); HEMATOCRIT 31.6 % (42.0-52.0); LYMPH # 1.6 10*3/uL (1.3-4.4); LYMPH % 23.6 % (27.0-41.0); MEAN CELL VOLUME 92.7 fl (80.0-94.0); MEAN CORPUSCULAR HGB 30.5 pg (27.0-31.0); MEAN CORPUSCULAR HGB CONC 32.9 g/dl (33.0-37.0); MEAN PLATELET VOLUME 11.3 fl (9.6-12.3); MONO # 0.8 10*3/uL (0.1-1.0); MONO % 12.3 % (3.0-9.0); NEUT # 4.2 10*3/uL (2.3-7.9); NEUT % 60.9 % (47.0-73.0); PLATELET COUNT AUTOMATED 97 10*3/uL (130-400); RED BLOOD COUNT 3.41 10*6/uL (4.50-5.90); RED CELL DISTRI WIDTH 12.5 % (0-14.5); WHITE BLOOD COUNT 6.9 10*3/uL (4.8-10.8)
[2020-07-08 07:14] LABS: CREATININE 6.52 mg/dL (0.70-1.30); POTASSIUM 4.1 mmol/L (3.5-5.1)
[2020-07-08 08:00] VITALS: BP 161/86
--- NOTE | 2020-07-08 08:00 | NUR ---
Neurological: awake,alert,oriented Respiratory: easy, regular,no distress Breath sounds: clear Cough: none Cardiovascular: hypertensive Gastrointestinal: obese Genito/Urinary: dysuria Musculoskeketal: AMBULATORY [address]
--- NOTE | 2020-07-08 08:57 | NUR ---
Denise from [employer] called and stated she has received the 's paystubs and they are currently over resourced for medicaid but she sent in an application and letter asking to see if any other types of resources were available for this patient.
--- NOTE | 2020-07-08 11:35 | NUR ---
[employer] RECEIVED CALL FROM DIELECTRIC TESTER YEHUDA LOYOLAJIMI REQUESTING CLINICAL INFORMATION. [employer] FAXED CLINICALS.
--- NOTE | 2020-07-08 12:15 | NUR ---
C/O GENERALIZED PAIN. REPOSITIONED AND 1:1 GIVEN WITHOUT EFFECT. ADMINISTERED PRN PAIN MEDICATION PER ORDER.
--- NOTE | 2020-07-08 13:00 | NUR ---
PAIN MEDICATION EFFECTIVE. IN DIALYSIS REDTING QUIETLY.
[2020-07-08 13:08] LABS: GLOMERULAR BASEMENT AB 3 units (0-20)
--- NOTE | 2020-07-08 13:48 | NUR ---
[employer] SEEN PATIENT WHILE RECEIVING DIALYSIS. [employer] EXPLAINED THE MEDICAID APPLICTION. PATIENT STATED HIS ELIZABETH WOULD BE THE ONE FILLING IT OUT AND TO CONTACT HIS . PATIENT STATED IT WAS OKAY FOR [employer] TO LEAVE THE APPLICATION IN HIS ROOM AND TO REACH OUT TO HIS . [employer] CONTACTED PATIENTS . SHE REQUESTED IT BE [facility]MA[facility]ED TO [email or web address] EMAILED APPLICATION AND WILL AWAIT TO RECEIVE IT BACK. ONCE RECEIVED [employer] WILL FORWARD IT TO [facility] WITH THE SPECIALIZED RECOVERY SERVICES NEED.
[2020-07-08 15:06] LABS: A/G RATIO 0.8 (0.7-1.7); ALBUMIN 2.4 g/dL (2.9-4.4); ALPHA-1-GLOBULIN 0.3 g/dL (0.0-0.4); BETA GLOBULIN 0.9 g/dL (0.7-1.3); GLOBULIN, TOTAL 3.2 g/dL (2.2-3.9); M-SPIKE Not Observed g/dL (Not Observed); TOTAL PROTEIN, SERUM 5.6 g/dL (6.0-8.5)
--- NOTE | 2020-07-08 17:00 | NUR ---
RETURNED FROM DIALYSIS IN STABLE CONDITION. VSS. REMOVED 3 KILOS OF FLUID. PATIENT TOLERATED WELL PER DIALYSIS NURSE.
[2020-07-08 17:16] VITALS: BP 147/76
[2020-07-08 17:46] LABS: HEMATOCRIT 36.9 % (42.0-52.0)
--- NOTE | 2020-07-08 19:33 | NUR ---
SITTING AT BEDSIDE, C/O PAIN TO RIGHT CHEST/NECK D/T TESIO INSERTION - MEDICATED WITH MORPHINE IV PER PRN ORDER. CALL LIGHT WITHIN REACH. WILL MONITOR
[2020-07-08 20:00] VITALS: BP 127/92; BP 128/82
--- NOTE | 2020-07-08 20:30 | NUR ---
REMAINS AT BEDSIDE. STATES EARLIER MORPHINE "HELPING". RESPIRATIONS EASY. LUNGS DIMINISHED, CLEAR. PULSE OX 98% RA. TESIO INTACT RIGHT CHEST. TRACE BLE EDEMA. CALL LIGHT WITHIN REACH. NO FURTHER VOICED COMPLAINTS
--- NOTE | 2020-07-08 21:14 | NUR ---
24 HR chart check completed.
--- NOTE | 2020-07-08 22:00 | NUR ---
REFUSED 2200 HEPARIN
--- NOTE | 2020-07-08 22:22 | NUR ---
REQUESTED AND RECEIVED NORCO AND RESTORIL PER PRN ORDER TO ASSIST WITH C/O OF TESIO INSERTION PAIN RATING AN 8 AND TO ASSIST WITH SLEEP. WILL MONITOR
--- NOTE | 2020-07-08 23:00 | NUR ---
MEDS EFFECTIVE. SLEEPING
[2020-07-09] VITALS: BP 120/72
--- NOTE | 2020-07-09 | NUR ---
SLEEPING. NO DISTRESS NOTED. RESPIRATIONS EASY. VSS. CALL LIGHT WITHIN REACH
[2020-07-09 05:52] LABS: CREATININE 5.89 mg/dL (0.70-1.30); POTASSIUM 4.1 mmol/L (3.5-5.1)
--- NOTE | 2020-07-09 05:53 | NUR ---
MEDICATED WITH NORCO PER PRN ORDER FOR COMPLAINTS OF TESIO INSERTION PAIN RATING AN 8. CALL LIGHT WITHIN REACH. WILL MONITOR
--- NOTE | 2020-07-09 06:30 | NUR ---
MEDS EFFECTIVE. SLEEPING
--- NOTE | 2020-07-09 07:25 | NUR ---
ONSITE CASE MANAGER PRINTED AND FAXED COMPLETED MEDICAID APPLICATION AND FAXED IT TO [facility] FOR [facility]. ONSITE CASE MANAGER INCLUDED THE NEED FOR SPECIALIZED RECOVERY SERVICES DUE TO ESRD.
[2020-07-09 08:00] VITALS: BP 155/88
--- NOTE | 2020-07-09 10:51 | NUR ---
TECHNICIAN SEMICONDUCTOR DEVELOPMENT CALLED [facility], TECHNICIAN SEMICONDUCTOR DEVELOPMENT LEFT MESSAGE FOR CALLI VILLARREAL. WILL AWAIT RETURN CALL.
--- NOTE | 2020-07-09 11:01 | NUR ---
CERTIFIED MIDWIFE FAXED UPDATES TO [facility] INCLUDING THE HEP PANEL.
[2020-07-09 12:00] VITALS: BP 173/68
[2020-07-09] MEDS ORDERED: AMLODIPINE BESYL5 MG PO (12:00)
[2020-07-09] MEDS ORDERED: FEROSUL325 MG PO (12:00)
[2020-07-09] MEDS ORDERED: LISINOPRIL5 MG PO ×2 (12:00)
[2020-07-09] MEDS ORDERED: Lasix80 MG PO ×2 (13:01)
--- NOTE | 2020-07-09 13:20 | NUR ---
[facility] HAS NOT ACCEPT THE PATIENT YET. THEY ARE WAITING ON AUTH FROM THE MAIN OFFICE. [facility] IS EMAILING THIS PATIENTS ON MEDICARE. PATIENT OR PATIENTS WILL HAVE TO CONTACT THE SOCIAL SECURITY OFFICE.
--- NOTE | 2020-07-09 14:53 | NUR ---
Called [facility] at request of Dr Julian, spoke with Agustín THORNTON and per Agustín all he needs is a copy of his Medicaid application and he gave an initial chair time of 10am tomorrow 07/10/2020 and therafter every M// at 6am. He also stated he will assist with the Medicare application if she brings it in to him. Trisha Nguyễn LPN notified of above. Dr Julian notified of chair time.
--- NOTE | 2020-07-09 15:05 | NUR ---
Application for medicaid was faxed to [facility] per request.
[2020-07-09] MEDS ORDERED: LISINOPRIL10 M1 PO (15:06)
[2020-07-09] MEDS ORDERED: NORCO 5-325 TA1 EACH PO (15:40)
--- NOTE | 2020-07-09 16:32 | NUR ---
Discharge instructions reviewed with patient/family. Patient receptive and verbalizes understanding. Follow-up care arranged. Written instructions given to patient/family. JORGE MANTILLA
[2020-07-10 13:09] LABS: ALBUMIN, URINE RANDOM 61.1 % (.); ALPHA-1-GLOBULIN, URINE 5.2 % (.); ALPHA-2-GLOBULIN, URINE 6.7 % (.); GAMMA GLOBULIN, URINE 14.9 % (.); M-SPIKE % Comment: % (Not Observed); PROTEIN,TOTAL - URINE RANDOM 412.2 mg/dL (Not Estab.)
--- NOTE | 2020-07-11 13:01 | NUR ---
WILBUR RECEIVED CALL FROM [facility] [address] SHE REQUESTED CLINICAL INFORMATION TO SUPPORT PATIENTS APPLICATION FOR MEDICAID. SHIP YARD ELECTRICAL PERSON FAXED H&P, DISCHARGE SUMMARY, AND DISCHARGE ORDERS TO [phone].
== END 2020-07-09 16:32 | disposition home or self-care (01) | DRG 682 ==
LOC: ED 08:40 → 5E 11:16 → EDHOLD 11:16 → 5E 19:08
PROVIDERS: Emergency Medicine; Internal Medicine; Internal Medicine Nephrology; Student in an Organized Health Care Education/Training Program; ADMIT Internal Medicine; ATTEND Internal Medicine
PROC: B5181ZA Fluoroscopy of Superior Vena Cava using Low Osmolar Contrast, Guidance (ICD-10-PCS; principal; 2020-07-06)
PROC: 02H633Z Insertion of Infusion Device into Right Atrium, Percutaneous Approach (ICD-10-PCS; principal; 2020-07-06)
PROC: 5A1D70Z Performance of Urinary Filtration, Intermittent, Less than 6 Hours Per Day (ICD-10-PCS; 2020-07-06)
DX: N17.0 Acute kidney failure with tubular necrosis (principal); E43 Unspecified severe protein-calorie malnutrition; E87.1 Hypo-osmolality and hyponatremia; Z68.41 Body mass index [BMI] 40.0-44.9, adult; N18.5 Chronic kidney disease, stage 5; M79.2 Neuralgia and neuritis, unspecified; F17.210 Nicotine dependence, cigarettes, uncomplicated; E11.65 Type 2 diabetes mellitus with hyperglycemia; D69.6 Thrombocytopenia, unspecified; E78.5 Hyperlipidemia, unspecified; I12.9 Hypertensive chronic kidney disease with stage 1 through stage 4 chronic kidney disease, or unspecified chronic kidney disease; D63.8 Anemia in other chronic diseases classified elsewhere; E11.22 Type 2 diabetes mellitus with diabetic chronic kidney disease; Z87.898 Personal history of other specified conditions; Z86.59 Personal history of other mental and behavioral disorders; Z79.4 Long term (current) use of insulin

== ENCOUNTER 2020-07-14 22:00 | Inpatient (IN) | payer SELFPAY ==
[~2020-07-14] VITALS: Ht 185.4 cm; Wt 137.6 kg
[~2020-07-14 22:00] MED LIST changes: +AMLODIPINE BESYL5 MG PO; +FEROSUL325 MG PO; +LISINOPRIL10 M1 PO; +LISINOPRIL5 MG PO; +Lasix80 MG PO; +NORCO 5-325 TA1 EACH PO
[2020-07-14 23:00] VITALS: BP 175/91
[2020-07-14 23:45] LABS: BASO % 0.2 % (0.0-1.0); EOS # 0.2 10*3/uL (0.0-0.4); EOS % 1.8 % (1.0-4.0); HEMATOCRIT 32.8 % (42.0-52.0); LYMPH # 1.5 10*3/uL (1.3-4.4); LYMPH % 15.9 % (27.0-41.0); MEAN CELL VOLUME 93.2 fl (80.0-94.0); MEAN CORPUSCULAR HGB 30.1 pg (27.0-31.0); MEAN CORPUSCULAR HGB CONC 32.3 g/dl (33.0-37.0); MEAN PLATELET VOLUME 11.8 fl (9.6-12.3); MONO # 0.9 10*3/uL (0.1-1.0); MONO % 9.8 % (3.0-9.0); NEUT # 6.7 10*3/uL (2.3-7.9); NEUT % 71.3 % (47.0-73.0); PLATELET COUNT AUTOMATED 98 10*3/uL (130-400); RED BLOOD COUNT 3.52 10*6/uL (4.50-5.90); RED CELL DISTRI WIDTH 12.8 % (0-14.5); WHITE BLOOD COUNT 9.3 10*3/uL (4.8-10.8)
[2020-07-15 00:05] LABS: BILIRUBIN Negative (Negative); BLOOD 1+ (Negative); CLARITY Clear (Clear); COLOR Yellow (Yellow); GLUCOSE 3+ (Negative); KETONE Negative (Negative); LEUKO ESTERASE Negative (Negative); NITRITE Negative (Negative); UROBILINOGEN 0.2 E.U./dl (0.0-1.0)
[2020-07-15 00:07] LABS: ALBUMIN 2.4 gm/dl (3.1-4.5); CREATININE 7.67 mg/dL (0.70-1.30); POTASSIUM 4.8 mmol/L (3.5-5.1); TOTAL PROTEIN 6.8 gm/dL (6.4-8.2)
[2020-07-15 00:13] LABS: RBC 16-20 rbc/hpf (0-2); WBC 0-2 wbc/hpf (0-5)
[2020-07-15 01:21] VITALS: BP 145/79
[2020-07-15 04:20] VITALS: BP 172/81
--- NOTE | 2020-07-15 04:22 | NUR ---
0400 PT RESTING ON CART STATES HE IS FEELING A LITTLE BETTER. WAS ABLE TO SIT AT BEDSIDE TO VOID. IV INFUSING SITE WITHOUT REDNESS OR EDEMA. ALEXANDRIA FULLER RN.
[2020-07-15 06:35] VITALS: BP 163/82
[2020-07-15 09:20] VITALS: BP 176/106
--- NOTE | 2020-07-15 09:20 | NUR ---
Time: 919 A 49 year old MALE admitted to 4E under services of LATOSHA BARAJAS DO. Pt. arrived via stretcher from ER. Chief complaint: C/O LOWER BACK PAIN BILATERAL AND SICK TO STOMACH. FRANCHESKA APARICIO
--- NOTE | 2020-07-15 09:40 | NUR ---
PATIENT C/O BILATERAL LOWER BACK "KIDNEYS" PAIN. RATE 8/10 ON PAIN SCALE. MEDICATED WITH MORPHINE SULFATE 2MG IV PER PRN ORDER. WILL CONTINUE TO MONITOR.
--- NOTE | 2020-07-15 10:10 | NUR ---
PATIENT RESTING QUIETLY. NO FURTHER C/O PAIN. MORPHINE EFFECTIVE. WILL CONTINUE TO MONITOR.
[2020-07-15 12:00] VITALS: BP 187/98
--- NOTE | 2020-07-15 13:20 | NUR ---
PHYSICAL THERAPY PT order received and chart reviewed. Pt out of room at this time pt at dialysis, will follow and attempt to see tomorrow AM. [place] SPT Agnes Don PT
--- NOTE | 2020-07-15 18:44 | NUR ---
PATIENT SIGNED OUT AGAINST MEDICAL ADVICE. IV DISCONTINUED. NOTIFIED. HE CAME TO FLOOR TO TALK TO PATIENT AND HE STILL DECIDED TO LEAVE AMA. DISABILITY LIAISON OFFICER NOTIFIED.
== END 2020-07-15 18:44 | disposition left against medical advice (07) | DRG 682 ==
LOC: ED 22:00 → EDHOLD 07-15 00:59 → 4E 07-15 08:42
PROVIDERS: Physician Assistant; ADMIT Emergency Medicine; ATTEND Emergency Medicine
DX: I12.0 Hypertensive chronic kidney disease with stage 5 chronic kidney disease or end stage renal disease (principal); N18.6 End stage renal disease; E43 Unspecified severe protein-calorie malnutrition; I16.0 Hypertensive urgency; M54.5 Low back pain; R74.8 Abnormal levels of other serum enzymes; D64.9 Anemia, unspecified; Z79.4 Long term (current) use of insulin; F17.210 Nicotine dependence, cigarettes, uncomplicated; E11.22 Type 2 diabetes mellitus with diabetic chronic kidney disease; E78.5 Hyperlipidemia, unspecified; E11.65 Type 2 diabetes mellitus with hyperglycemia; Z79.899 Other long term (current) drug therapy; K59.00 Constipation, unspecified; N20.0 Calculus of kidney; Z53.29 Procedure and treatment not carried out because of patient's decision for other reasons

== ENCOUNTER → 2020-09-15 | Outpatient (CLI) | payer OTHER ==
[2020-09-15 10:51] LABS: HEMATOCRIT 36.2 % (42.0-52.0); MEAN CELL VOLUME 93.8 fl (80.0-94.0); MEAN CORPUSCULAR HGB 30.1 pg (27.0-31.0); MEAN PLATELET VOLUME 10.6 fl (9.6-12.3); RED BLOOD COUNT 3.86 10*6/uL (4.50-5.90); RED CELL DISTRI WIDTH 13.2 % (0-14.5); WHITE BLOOD COUNT 8.5 10*3/uL (4.8-10.8)
[2020-09-15 11:05] LABS: ALBUMIN 2.7 gm/dl (3.1-4.5); CREATININE 7.95 mg/dL (0.70-1.30); POTASSIUM 4.8 mmol/L (3.5-5.1); TOTAL PROTEIN 7.5 gm/dL (6.4-8.2)
[2020-09-15 11:10] LABS: FREE T4 1.02 ng/dl (0.76-1.46); THYROID STIM HORMONE (HS) 1.22 uIU/ml (0.358-4.75)
[2020-09-15 12:04] LABS: VITAMIN D, 25-HYDROXY 14.8 ng/mL (30-100)
== END | disposition home or self-care (01) ==
LOC: LAB 10:25
PROVIDERS: ATTEND Family Medicine
DX: M47.814 Spondylosis without myelopathy or radiculopathy, thoracic region (principal); M85.88 Other specified disorders of bone density and structure, other site; M47.812 Spondylosis without myelopathy or radiculopathy, cervical region; M48.02 Spinal stenosis, cervical region; E11.9 Type 2 diabetes mellitus without complications; N18.9 Chronic kidney disease, unspecified; I10 Essential (primary) hypertension; E55.9 Vitamin D deficiency, unspecified